=== PATIENT | female | born 1980 ===

== ENCOUNTER 2025-03-06 14:34 | Day surgery (SDC) | payer OTHER ==
[2025-03-06] VITALS (10 sets, daily range): BP systolic 135–157; BP diastolic 76–104
[~2025-03-06] VITALS: Ht 162.6 cm; Wt 103.1 kg
[~2025-03-06 14:34] MED LIST: Bupivacaine 0.5% HCl 5 MG/ML 30MLVIAL ONE; Dexamethasone Sod Phos 10 MG/ML 1ML VIAL ONE; FentaNYL Citrate 50 MCG/ML 2 ML Injection ONE; Ketorolac Tromethamine 30mg Vial ONE; Metoclopramide HCl 5MG / ML 2ML Vial ONE; Ondansetron HCl 2 MG / ML 2ML Vial ONE; Rocuronium Bromide 10 MG/ML 5ML Injection IV ONE
--- NOTE | 2025-03-06 15:08 | NUR ---
Ambulatory in Day Surgery. Pre-Op teaching done. Pt verbalizes understanding. Patient States Post-Procedure ride home has been arranged. Patient confirms NPO status and agrees with scheduled surgery.
[2025-03-06] MEDS ORDERED: Albuterol 2.5 MG/3 ML VIAL INH PRN ×2 (15:20→16:00)
[2025-03-06] MEDS ORDERED: FentaNYL Citrate 50 MCG/ML 2 ML Injection IV PRN ×4 (15:25→15:55)
[2025-03-06] MEDS ORDERED: Ondansetron HCl 2 MG / ML 2ML Vial IV PRN ×2 (15:25→15:55)
[2025-03-06] MEDS ORDERED: HYDROmorphone HCl/Pf 1MG SYR IV PRN ×4 (15:25→15:55)
[2025-03-06] MEDS ORDERED: ePHEDrine Sulfate 50 MG/ML 1ML Injection IV PRN ×2 (15:25→15:55)
[2025-03-06] MEDS ORDERED: Dexamethasone Sod Phos 10 MG/ML 1ML VIAL ONE (15:31)
[2025-03-06] MEDS ORDERED: Ondansetron HCl 2 MG / ML 2ML Vial ONE (15:31)
[2025-03-06] MEDS ORDERED: FentaNYL Citrate 50 MCG/ML 5 ML Injection ONE (15:31)
[2025-03-06] MEDS ORDERED: Ketorolac Tromethamine 30mg Vial ONE (15:31)
[2025-03-06] MEDS ORDERED: Rocuronium Bromide 10 MG/ML 5ML Injection IV ONE (15:31)
[2025-03-06] MEDS ORDERED: Metoclopramide HCl 5MG / ML 2ML Vial IV PRN (15:55)
[2025-03-06] MEDS ORDERED: Labetalol HCL 5 MG/ML 4ML Injection (Single Dose) IV PRN (15:55)
[2025-03-06] MEDS ORDERED: Sugammadex Sodium 200 MG/2ML SDV (100 MG/ML) ONE (16:30)
--- NOTE | 2025-03-06 18:10 | NUR ---
Patient up to Ambulate independently. Gait steady. Discharge instructions reviewed with patient. Patient verbalizes understanding. Copy given to patient to take home. Dressing to procedure sites (x3) clean, dry, intact with no visible drainage, swelling, erythema or bruising noted. Discharged via wheelchair to private car for ride home. ALL BELONGINGS RETURNED TO PATIENT.
== END 2025-03-06 23:00 | disposition home or self-care (01) ==
LOC: ORSCMMR 14:34 → ORD 16:00 → ORSCMMR 23:00
PROVIDERS: Obstetrics & Gynecology
PROC: 0UT74ZZ Resection of Bilateral Fallopian Tubes, Percutaneous Endoscopic Approach (ICD-10-PCS; principal; 2025-03-06 16:00)
DX: Z30.2 Encounter for sterilization (principal); E66.9 Obesity, unspecified; Z68.39 Body mass index [BMI] 39.0-39.9, adult
CPT/HCPCS: 88302; A9270; J1100; J1885; J2405; J2704; J2765; J3010; J7120